=== PATIENT | female | born 2000 | race Two or more races ===

== ENCOUNTER 2023-11-05 19:19 | Observation (INO) | payer OTHER | END 2023-11-05 21:20 | disposition home or self-care (01) | LOC: MLD 19:19 | PROVIDERS: ADMIT Obstetrics & Gynecology; ATTEND Obstetrics & Gynecology | DX: O26.893 Other specified pregnancy related conditions, third trimester (principal); R10.31 Right lower quadrant pain; Z3A.30 30 weeks gestation of pregnancy | CPT/HCPCS: 59025; 81000; G0378 ==

== ENCOUNTER 2024-01-07 06:14 | Inpatient (IN) | payer OTHER ==
[~2024-01-07] VITALS: Ht 172.7 cm; Wt 120.7 kg
[2024-01-07] MEDS ORDERED: PREN-543 PO (07:04)
[2024-01-07] MEDS ORDERED: CITRIC ACID/SODIUM CITRATE 30 ML UDC PO ONE (07:05)
[2024-01-07 07:37] LABS: BASOPHILS % (AUTO) 0.3 % (0.0-2.0); EOSINOPHILS # (AUTO) 0.1 K/uL (0-0.4); EOSINOPHILS % (AUTO) 1.1 % (0.0-4.0); HEMATOCRIT 39.5 % (36-48); HEMOGLOBIN 13.8 g/dL (12.0-16.0); LYMPHOCYTES # (AUTO) 1.9 K/uL (2.5-16.5); LYMPHOCYTES % (AUTO) 20.9 % (20.5-51.1); MEAN CORPUSCULAR HEMOGLOBIN 31 pg (27-31); MEAN CORPUSCULAR HGB CONC 35 g/dL (33-37); MEAN CORPUSCULAR VOLUME 88.1 fL (80-94); MONOCYTES # (AUTO) 0.7 K/uL (0.8-1.0); MONOCYTES % (AUTO) 7.8 % (1.7-9.3); NEUTROPHILS # (AUTO) 6.3 K/uL (1.8-7.7); NEUTROPHILS % (AUTO) 69.9 % (42.2-75.2); PLATELET COUNT (AUTO) 285 K/uL (140-450); RED BLOOD CELL COUNT(AUTO) 4.48 MIL/uL (4.20-5.40); RED CELL DISTRIBUTION WIDTH 14.5 % (11.6-13.7)
[2024-01-07 07:56] LABS: INR 0.86 (0.8-1.2); PARTIAL THROMBOPLASTIN TIME 27.5 secs (22-35.6); PROTHROMBIN TIME 9.1 secs (10.8-13.4)
[2024-01-07 07:59] LABS: BILIRUBIN,URINE NEGATIVE (NEGATIVE); BLOOD, URINE NEGATIVE (NEGATIVE); LEUKOCYTE ESTERASE ,URINE 3+ (NEGATIVE); PH,URINE 7.5 (5.0-9.0); PROTEIN,URINE TRACE (NEGATIVE); UGLUCOSE NEGATIVE (NEGATIVE); UROBILINOGEN,URINE 0.2 EU/dL (0.2 - 1)
[2024-01-07 08:01] LABS: APPEARANCE,URINE HAZY (CLEAR); COLOR,URINE YELLOW (YELLOW)
[2024-01-07 08:01] LABS: ALBUMIN 2.4 g/dL (3.4-5.0); ANION GAP 14.3 (8-16); CALCIUM 8.4 mg/dL (8.5-10.1); CARBON DIOXIDE 20.4 mmol/L (21-32); CREATININE 0.6 mg/dL (0.6-1.3); POTASSIUM 3.7 mmol/L (3.5-5.1); TOTAL BILIRUBIN 0.3 mg/dL (0.0-1.0); TOTAL PROTEIN, SERUM 6.6 g/dL (6.4-8.2)
[2024-01-07 08:27] LABS: SQUAMOUS EPITHELIAL CELL,UR 20-50 /LPF (0-3 (FEW))
[2024-01-07 08:28] LABS: BACTERIA,URINE 1+ /HPF (None Seen); NITRITE, URINE POSITIVE (NEGATIVE); RBC,URINE 0-5 /HPF (0-5)
[2024-01-07 09:59] VITALS: BP 132/61; PULSE 71; RESP 18; TEMP 98.2
[2024-01-07] MEDS ORDERED: KETOROLAC 60 MG/2 ML VIAL IM PRN (13:00)
[2024-01-07] MEDS ORDERED: NALOXONE 0.4 MG/ML VIAL IVP PRN ×2 (13:00)
[2024-01-07] MEDS ORDERED: diphenhydrAMINE 50 MG/ML VIAL IVP PRN (13:00)
[2024-01-07] MEDS ORDERED: HYDROmorphone 1 MG/ML AMP IVP PRN (13:00)
[2024-01-07] MEDS ORDERED: ONDANSETRON 4 MG/2 ML VIAL IVP PRN (13:00)
[2024-01-07] MEDS ORDERED: MEPERIDINE 25 MG/ML SYR IVP PRN (13:00)
[2024-01-07] MEDS: LACTATED RINGERS 1,000 ML IV SCH (13:11)
[2024-01-07] MEDS ORDERED: OXYTOCIN 20 UNITS in LACTATED RINGERS 1,000 ML IV SCH (13:20)
[2024-01-07] MEDS ORDERED: TEMAZEPAM 15 MG CAP PO PRN (13:20)
[2024-01-07] MEDS ORDERED: IBUPROFEN 800 MG TAB PO PRN ×2 (13:20→13:45)
[2024-01-07] MEDS ORDERED: METHYLERGONOVINE 0.2 MG/ML AMP IM PRN (13:20)
[2024-01-07] MEDS: ceFAZolin 2,000 MG VIAL ONE (13:32)
[2024-01-07] MEDS: OXYTOCIN/0.9 % SODIUM CHLORIDE 500 ML IV SCH (15:13)
[2024-01-07] MEDS: KETOROLAC 30 MG/ML VIAL IVP PRN (18:19)
[2024-01-07] MEDS: DOCUSATE SOD/SENNA 50/8.6 MG 1 TAB PO SCH (20:59)
[2024-01-08] MEDS: IBUPROFEN 800 MG TAB PO PRN (04:08)
[2024-01-08 06:09] LABS: BASOPHILS % (AUTO) 0.2 % (0.0-2.0); EOSINOPHILS # (AUTO) 0.1 K/uL (0-0.4); EOSINOPHILS % (AUTO) 0.9 % (0.0-4.0); HEMATOCRIT 37.2 % (36-48); HEMOGLOBIN 12.9 g/dL (12.0-16.0); LYMPHOCYTES # (AUTO) 1.7 K/uL (2.5-16.5); LYMPHOCYTES % (AUTO) 15.9 % (20.5-51.1); MEAN CORPUSCULAR HEMOGLOBIN 31 pg (27-31); MEAN CORPUSCULAR HGB CONC 35 g/dL (33-37); MEAN CORPUSCULAR VOLUME 88.8 fL (80-94); MONOCYTES # (AUTO) 0.8 K/uL (0.8-1.0); MONOCYTES % (AUTO) 7.6 % (1.7-9.3); NEUTROPHILS % (AUTO) 75.4 % (42.2-75.2); PLATELET COUNT (AUTO) 253 K/uL (140-450); RED BLOOD CELL COUNT(AUTO) 4.19 MIL/uL (4.20-5.40); RED CELL DISTRIBUTION WIDTH 14.6 % (11.6-13.7); WHITE BLOOD COUNT (AUTO) 10.6 K/uL (4.8-10.8)
[2024-01-08] MEDS: oxyCODONE/APAP 5/325 MG 1 TAB TAB PO PRN (09:32)
[2024-01-08] MEDS: SIMETHICONE 80 MG TAB.CHEW PO PRN (09:33)
[2024-01-09] MEDS: oxyCODONE/APAP 5/325 MG 1 TAB TAB PO PRN (04:21)
== END 2024-01-10 10:48 | disposition home or self-care (01) | DRG 540 ==
LOC: MLD 06:14 → OBSVTOIN 06:14 → MFCC 14:50
PROVIDERS: ADMIT Obstetrics & Gynecology; ATTEND Obstetrics & Gynecology
PROC: 10D00Z1 Extraction of Products of Conception, Low, Open Approach (ICD-10-PCS; principal; 2024-01-07 12:00)
DX: O32.1XX0 Maternal care for breech presentation, not applicable or unspecified (principal); E66.01 Morbid (severe) obesity due to excess calories; Z37.0 Single live birth; Z3A.39 39 weeks gestation of pregnancy
CPT/HCPCS: 36415; 51702; 76815; 80053; 81001; 85025; 85610; 85730; 86592; 86886; 86900; 86901; 87081; 87086; J1885; J2590; Q0092